=== PATIENT | male | born 1980 | race Hispanic/Latino ===

== ENCOUNTER 2017-06-21 08:38 | Emergency (ER) | payer SELFPAY ==
[2017-06-21] MEDS ORDERED: Dicyclomine 20 MG TAB ONE (09:45)
[2017-06-21] MEDS ORDERED: Ketorolac Tromethamine 30 MG/ML VIAL ONE (09:45)
[2017-06-21 10:01] LABS: Bilirubin Negative (Negative); Blood, Urine Negative (Negative); Clarity CLEAR (Clear); Glucose, Urine (Dipstick) Negative (Negative); Leukocyte Negative (Negative); Nitrite Negative (Negative); Protein, Urine (Dipstick) Negative (Neg-Trace); Specific Gravity, Urine 1.021 (1.002-1.036); Urobilinogen 0.2 mg/dL (0.2-1.0); pH, Urine 5.5 (5.0-9.0)
[2017-06-21 10:10] LABS: ALT (SGPT) 13 U/L (8-55); AST (SGOT) 16 U/L (5-34); Albumin 4.4 g/dL (3.5-5.0); Alkaline Phosphatase 82 U/L (40-150); Anion Gap 12 mmol/L (10-20); BUN (Urea Nitrogen) 11 mg/dL (8.9-20.6); Bilirubin, Total 0.9 mg/dL (0.2-1.2); Calc. Creatinine Clearance 0 mL/min (70-130); Carbon Dioxide 26 mmol/L (22-29); Chloride 106 mmol/L (98-107); Estimated GFR-MDRD Greater than 90; Globulin 2.4 g/dL (2.4-3.5); Glucose 91 mg/dL (70-105); Lipase 26 U/L (8-78); Potassium 4.4 mmol/L (3.5-5.1); Protein, Total 6.8 g/dL (6.0-8.3); Sodium 140 mmol/L (136-145)
[2017-06-21 10:14] LABS: #Eosinphils 0.1 thou/uL (0.0-0.7); #Lymphocytes 1.7 thou/uL (1.20-3.40); #Monocytes 0.3 thou/uL (0.11-0.59); #Neutrophils 3.4 thou/uL (1.40-6.50); %Basophils 0.7 % (0.0-1.0); %Eosinophils 2.2 % (0.0-10.0); %Lymphocytes 30.2 % (21.0-51.0); %Monocytes 5.7 % (0.0-10.0); %Neutrophils 61.3 % (42.0-75.0); Hemoglobin 15.5 g/dL (14.0-18.0); Mean Corpuscular HGB CONC 34.1 g/dL (32.0-36.0); Mean Corpuscular Volume 93.7 fl (80.0-94.0); Mean Platelet Volume 7.1 fL (7.4-10.4); Platelet Count 297 thou/uL (130-400); RBC Distribution Width 12.1 % (11.5-14.5); Red Blood Cell (RBC) Count 4.85 mill/uL (4.70-6.10); White Blood Cell (WBC) Count 5.5 thou/uL (4.8-10.8)
== END 2017-06-21 11:56 | disposition home or self-care (01) ==
LOC: ERS 08:38
DX: R10.9 Unspecified abdominal pain (principal)
CPT/HCPCS: 36415; 80053; 81003; 83690; 85025; 96361; 96374; J1885

== ENCOUNTER 2018-01-26 04:38 | Emergency (ER) | payer SELFPAY ==
[2018-01-26 05:18] LABS: #Basophils 0.1 thou/uL (0.0-0.2); #Eosinphils 0.1 thou/uL (0.0-0.7); #Lymphocytes 1.4 thou/uL (1.20-3.40); #Monocytes 0.8 thou/uL (0.11-0.59); #Neutrophils 15.5 thou/uL (1.40-6.50); %Basophils 0.4 % (0.0-1.0); %Eosinophils 0.3 % (0.0-10.0); %Lymphocytes 7.7 % (21.0-51.0); %Monocytes 4.7 % (0.0-10.0); Hemoglobin 16.1 g/dL (14.0-18.0); Mean Corpuscular Volume 91.3 fL (78.0-98.0); Mean Platelet Volume 7.4 fL (7.4-10.4); Platelet Count 309 thou/uL (130-400); Red Blood Cell (RBC) Count 5.04 mill/uL (4.70-6.10); White Blood Cell (WBC) Count 17.8 thou/uL (4.8-10.8)
[2018-01-26 05:40] LABS: ALT (SGPT) 34 U/L (8-55); AST (SGOT) 48 U/L (5-34); Acetaminophen Less than 6.0 mcg/mL (10.0-30.0); Albumin 4.9 g/dL (3.5-5.0); Alcohol 108 mg/dL (Less than 10); Alkaline Phosphatase 98 U/L (40-150); Anion Gap 16 mmol/L (10-20); BUN (Urea Nitrogen) 15 mg/dL (8.9-20.6); Bilirubin, Total 1.1 mg/dL (0.2-1.2); Calc. Creatinine Clearance 0 mL/min (70-130); Calcium 9.1 mg/dL (7.8-10.44); Carbon Dioxide 20 mmol/L (22-29); Chloride 107 mmol/L (98-107); Estimated GFR-MDRD 73; Glucose 99 mg/dL (70-105); Potassium 3.4 mmol/L (3.5-5.1); Protein, Total 7.9 g/dL (6.0-8.3); Salicylate Less than 8.0 mg/dL (15.0-30.0); Sodium 140 mmol/L (136-145)
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
== END 2018-01-26 07:37 | disposition home or self-care (01) ==
LOC: ERS 04:38
DX: S22.32XA Fracture of one rib, left side, initial encounter for closed fracture (principal); S02.2XXA Fracture of nasal bones, initial encounter for closed fracture; F10.129 Alcohol abuse with intoxication, unspecified; Y04.0XXA Assault by unarmed brawl or fight, initial encounter
CPT/HCPCS: 70450; 70486; 72125; 80053; 80307; 83605; 85025; 93005; 96360

== ENCOUNTER 2018-03-08 18:38 | Emergency (ER) | payer SELFPAY ==
[2018-03-08] MEDS ORDERED: cefTRIAXone\\ROCEPHIN 250 MG VIAL ONE (19:22)
[2018-03-08] MEDS ORDERED: Azithromycin 500 MG VIAL ONE (19:22)
[2018-03-08] MEDS ORDERED: Azithromycin 250 MG TAB ONE (19:24)
[2018-03-08 19:46] LABS: Bilirubin Negative (Negative); Blood, Urine Negative (Negative); Clarity CLEAR (Clear); Glucose, Urine (Dipstick) Negative (Negative); Leukocyte Negative (Negative); Nitrite Negative (Negative); Protein, Urine (Dipstick) Negative (Neg-Trace); Specific Gravity, Urine 1.022 (1.002-1.036)
[2018-03-12 01:45] LABS: Chlamydia by PCR Not Detected (NotDetected); GC by PCR Not Detected (NotDetected)
== END 2018-03-08 20:00 | disposition home or self-care (01) ==
LOC: ERS 18:38
DX: A60.01 Herpesviral infection of penis (principal)
CPT/HCPCS: 81003; 87491; 87591; 96372; J0456; J0696

== ENCOUNTER 2018-05-15 06:11 | Emergency (ER) | payer SELFPAY ==
[2018-05-15] MEDS ORDERED: Bacitracin Zinc 1 Packet ONE (06:33)
[2018-05-15] MEDS ORDERED: Adacel (T-DAP) 0.5 ML SYRINGE ONE (06:33)
[2018-05-15] MEDS ORDERED: Ketorolac Tromethamine 60 MG/2 ML VIAL ONE (07:05)
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
== END 2018-05-15 07:24 | disposition home or self-care (01) ==
LOC: ERS 06:11
DX: S62.306A Unspecified fracture of fifth metacarpal bone, right hand, initial encounter for closed fracture (principal); V29.9XXA Motorcycle rider (driver) (passenger) injured in unspecified traffic accident, initial encounter
CPT/HCPCS: 26600; 90471; 90715; 96372; J1885

== ENCOUNTER 2018-09-01 02:42 | Emergency (ER) | payer SELFPAY ==
[2018-09-01] MEDS ORDERED: Lidocaine 1% w/Epinephrine 1:100K 20 ML VIAL ONE (02:52)
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
== END 2018-09-01 04:30 | disposition home or self-care (01) ==
LOC: ERS 02:42
DX: S01.81XA Laceration without foreign body of other part of head, initial encounter (principal); Y00.XXXA Assault by blunt object, initial encounter
CPT/HCPCS: 12011; 70450; J2001

== ENCOUNTER 2018-09-20 11:11 | Emergency (ER) | payer SELFPAY | END 2018-09-20 11:40 | disposition home or self-care (01) | LOC: ERS 11:11 | DX: S01.81XD Laceration without foreign body of other part of head, subsequent encounter (principal) ==

== ENCOUNTER 2020-02-17 10:37 | Emergency (ER) | payer SELFPAY ==
[2020-02-17] MEDS ORDERED: Lidocaine 1% PF 5 ML VIAL ONE (12:37)
[2020-02-17] MEDS ORDERED: Boostrix 0.5 ML (Tdap) VIAL ONE (12:37)
[2020-02-17] MEDS ORDERED: Lidocaine 1% (PF) 30 ML VIAL ONE (13:16)
== END 2020-02-17 14:56 | disposition home or self-care (01) ==
LOC: ERS 10:37
DX: S01.511A Laceration without foreign body of lip, initial encounter (principal); W10.9XXA Fall (on) (from) unspecified stairs and steps, initial encounter
CPT/HCPCS: 12011; 90471; 90715; J2001

== ENCOUNTER 2020-02-21 18:28 | Emergency (ER) | payer SELFPAY | END 2020-02-21 20:02 | disposition home or self-care (01) | LOC: ERS 18:28 | DX: S01.511D Laceration without foreign body of lip, subsequent encounter (principal); W10.9XXD Fall (on) (from) unspecified stairs and steps, subsequent encounter ==

== ENCOUNTER 2020-02-25 17:04 | Emergency (ER) | payer SELFPAY | END 2020-02-25 17:25 | disposition home or self-care (01) | LOC: ERS 17:04 | DX: S01.511D Laceration without foreign body of lip, subsequent encounter (principal) | CPT/HCPCS: 99281 ==